=== PATIENT | female | born 1940 | race Caucasian/White ===

== ENCOUNTER 2021-01-05 21:03 | Observation (INO) ==
[2021-01-05] MEDS ORDERED: ASPIRIN CHEW 81 MG TABLET PO STA (21:28)
[2021-01-05 21:45] LABS: Basophils # 0.1 10*3/uL (0.0-0.2); Basophils % 0.7 % (0.0-0.8); Eosinophils # 0.2 10*3/uL (0.0-0.87); Eosinophils % 1.4 % (0.00-10.9); Hematocrit 46.7 VOL% (35.7-47.0); Hemoglobin 15.7 GM/DL (12.0-16.0); Immature Granulocytes % 0.4 %; Immature Granulocytes Absolute 0.05 #; Lymphocytes # 3.1 10*3/uL (1.4-4.0); Lymphocytes % 26.8 % (21.3-54.2); Mean Corpuscular HGB Conc 33.6 GM/DL (32-36); Mean Corpuscular Volume 94.5 FL (87-102); Mean Platelet Volume 10.3 FL (9.6-12.0); Monocytes % 7.9 % (1.7-12.7); Neutrophils % 62.8 % (38.7-73.9); Platelet Count 174 T/CUMM (130-400); Red Blood Count 4.94 MC/CUMM (3.8-5.5); Red Cell Distribution Width 13.6 % (9.3-17.3); White Blood Count 11.6 T/CUMM (4-12)
[2021-01-05 22:12] LABS: Albumin 3.9 G/DL (3.4-5.0); Bilirubin,Total 0.5 MG/DL (0.2-1.0); Osmolality,Calculated 274.7 MOS/KG (273-304); Potassium 4.4 MMOL/L (3.5-5.1); Thyroid Stimulating Hormone 0.14 uIU/ml (0.358-3.74); Total Protein 7.6 G/DL (6.4-8.2)
[2021-01-05] MEDS ORDERED: NITROGLYCERIN SL 0.4 MG TABLET SL PRN (23:00)
[2021-01-05] MEDS ORDERED: ONDANSETRON 4 MG/2 ML VIAL IV PRN (23:32)
[2021-01-05] MEDS ORDERED: ACETAMINOPHEN 325 MG TABLET PO PRN (23:32)
[2021-01-05] MEDS ORDERED: SODIUM CHLORIDE 0.9% 1,000 ML IV SCH (23:45)
[2021-01-06 06:09] LABS: Albumin 3.2 G/DL (3.4-5.0); Bilirubin,Total 0.8 MG/DL (0.2-1.0); Calcium 8.3 MG/DL (8.5-10.1); Osmolality,Calculated 274.7 MOS/KG (273-304); Potassium 4.1 MMOL/L (3.5-5.1)
[2021-01-06] MEDS ORDERED: LEVOTHYROXINE 100 MCG TABLET PO SCH (06:30)
[2021-01-06 08:23] VITALS: BP 116/56
[2021-01-06] MEDS ORDERED: PANTOPRAZOLE 40 MG TABLET PO SCH (09:00)
[2021-01-06] MEDS ORDERED: ASPIRIN 325 MG TABLET PO SCH (09:00)
[2021-01-06] MEDS ORDERED: ASPIRIN EC 81 MG TABLET PO SCH (09:00)
[2021-01-06] MEDS ORDERED: DOCUSATE SODIUM 100 MG CAPSULE PO SCH (09:00)
== END 2021-01-06 14:45 | disposition home or self-care (01) ==
LOC: N.EDINP 21:03 → N.ED 21:03 → N.TELES 01-06 00:56
PROVIDERS: ADMIT Family Medicine; ATTEND Family Medicine

== ENCOUNTER 2022-05-15 21:18 | Observation (INO) ==
[2022-05-15] MEDS ORDERED: ALBUTEROL NEB SOLN 5 MG/ML 20 ML/BOTTLE CONT NEB SCH (22:00)
[2022-05-15] MEDS ORDERED: NITROGLYCERIN 2% OINT 1 INCH/GM PACK TOP STA (22:00)
[2022-05-15] MEDS ORDERED: methylPREDNISolone SOD SUC 125 MG/2 ML VIAL IV STA (22:00)
[2022-05-15] MEDS ORDERED: FUROSEMIDE 40 MG/4 ML VIAL IV STA (22:00)
[2022-05-15] MEDS ORDERED: ONDANSETRON 4 MG/2 ML VIAL IV STA (22:00)
[2022-05-15 22:22] LABS: Basophils # 0.1 10*3/uL (0.0-0.2); Basophils % 0.6 % (0.0-0.8); Eosinophils # 0.2 10*3/uL (0.0-0.87); Eosinophils % 1.3 % (0.00-10.9); Hematocrit 41.3 VOL% (35.7-47.0); Hemoglobin 13.5 GM/DL (12.0-16.0); Immature Granulocytes % 0.7 %; Immature Granulocytes Absolute 0.09 #; Lymphocytes % 16.8 % (21.3-54.2); Mean Corpuscular HGB Conc 32.7 GM/DL (32-36); Mean Corpuscular Volume 94.7 FL (87-102); Mean Platelet Volume 11.1 FL (9.6-12.0); Monocytes # 1.1 10*3/uL (0.11-0.8); Monocytes % 8.7 % (1.7-12.7); Neutrophils % 71.9 % (38.7-73.9); Platelet Count 111 T/CUMM (130-400); Red Blood Count 4.36 MC/CUMM (3.8-5.5); Red Cell Distribution Width 14.3 % (9.3-17.3)
[2022-05-15 22:28] LABS: Arterial Base Excess iSTAT 0 MMOL/L (-2.5-2.5); Arterial Bicarbonate iSTAT 22.8 MMOL/L (20-26); Arterial O2 Saturation iSTAT 97 % (95-100); Arterial PCO2 iSTAT 31 MM HG (35-48); Arterial PO2 iSTAT 81 MM HG (80-95); Arterial Total CO2 iSTAT 24 MMO/L (23-27); Arterial pH iSTAT 7.474 (7.35-7.45)
[2022-05-15 22:39] LABS: INR 1.1; PT Patient Result 11.9 SECS (10.1-12.1)
[2022-05-15 22:45] LABS: Albumin 3.1 G/DL (3.4-5.0); Bilirubin,Total 0.7 MG/DL (0.20-1.00); Calcium 8.8 MG/DL (8.5-10.1); Osmolality,Calculated 284.1 MOS/KG (273-304)
[2022-05-15 22:52] LABS: Free T4 (Free Thyroxine) 1.09 NG/DL (0.76-1.46); Thyroid Stimulating Hormone 0.229 uIU/ml (0.358-3.74)
[2022-05-16] MEDS ORDERED: MORPHINE 2 MG/1 ML SYRINGE IV PRN (00:53)
[2022-05-16] MEDS ORDERED: ONDANSETRON 4 MG/2 ML VIAL IV PRN (00:53)
[2022-05-16] MEDS ORDERED: SODIUM CHLORIDE 0.9% 1,000 ML IV SCH (00:53)
[2022-05-16] MEDS ORDERED: GLUCAGON 1 MG VIAL IM PRN (00:53)
[2022-05-16] MEDS ORDERED: ACETAMINOPHEN 325 MG TABLET PO PRN (00:53)
[2022-05-16] MEDS ORDERED: DEXTROSE 10% 250 ML BAG IV PRN (00:58)
[2022-05-16] MEDS: INSULIN REGULAR 100 UNIT/ML SUBCUT SCH ×4 (01:30→18:43)
[2022-05-16] MEDS: ALBUTEROL/IPRATROPIUM 3 ML NEB RESP TX SCH ×5 (03:00→19:31)
[2022-05-16] MEDS ORDERED: methylPREDNISolone SOD SUC 40 MG/1 ML VIAL IV SCH (06:00)
[2022-05-16] MEDS ORDERED: NITROGLYCERIN SL 0.4 MG TABLET SL PRN (06:56)
[2022-05-16 07:16] LABS: Basophils % 0.2 % (0.0-0.8); Eosinophils % 0.1 % (0.00-10.9); Hematocrit 39.5 VOL% (35.7-47.0); Hemoglobin 12.8 GM/DL (12.0-16.0); Immature Granulocytes % 0.9 %; Lymphocytes # 0.8 10*3/uL (1.4-4.0); Lymphocytes % 7.4 % (21.3-54.2); Mean Corpuscular HGB Conc 32.4 GM/DL (32-36); Mean Corpuscular Volume 96.8 FL (87-102); Mean Platelet Volume 12.4 FL (9.6-12.0); Monocytes # 0.2 10*3/uL (0.11-0.8); Monocytes % 1.9 % (1.7-12.7); Neutrophils % 89.5 % (38.7-73.9); Platelet Count 98 T/CUMM (130-400); Red Blood Count 4.08 MC/CUMM (3.8-5.5); Red Cell Distribution Width 14.6 % (9.3-17.3); White Blood Count 11.2 T/CUMM (4-12)
[2022-05-16 07:22] LABS: Albumin 3.1 G/DL (3.4-5.0); Bilirubin,Total 0.7 MG/DL (0.20-1.00); Calcium 8.4 MG/DL (8.5-10.1); Osmolality,Calculated 286.5 MOS/KG (273-304); Potassium 3.4 MMOL/L (3.5-5.1); Risk Ratio 1.96; Total Protein 6.9 G/DL (6.4-8.2); VLDL Cholesterol 15.8 MG/DL
[2022-05-16 07:26] LABS: Platelet Estimate Decreased
[2022-05-16] MEDS ORDERED: POTASSIUM CHLORIDE 20 MEQ TABLET PO ONE (07:42)
[2022-05-16] MEDS ORDERED: MAGNESIUM SULF RIDER 2 GM/50 ML PREMIX IV ONE (07:43)
[2022-05-16] MEDS: ENOXAPARIN 40 MG/0.4 ML SYRINGE SUBCUT SCH (08:36)
[2022-05-16] MEDS: FUROSEMIDE 20 MG/2 ML VIAL IV SCH ×2 (08:38→15:24)
[2022-05-16] MEDS: COLESEVELAM 625 MG TABLET PO SCH ×2 (08:41→21:45)
[2022-05-16] MEDS: DOCUSATE SODIUM 100 MG CAPSULE PO SCH ×2 (08:41→21:45)
[2022-05-16] MEDS: LEVOTHYROXINE 100 MCG TABLET PO SCH (08:41)
[2022-05-16] MEDS: ASPIRIN EC 81 MG TABLET PO SCH (08:42)
[2022-05-16] MEDS: PANTOPRAZOLE 40 MG TABLET PO SCH (08:42)
[2022-05-16] MEDS: GLIMEPIRIDE 2 MG TABLET PO SCH (08:42)
[2022-05-16] MEDS: SERTRALINE 50 MG TABLET PO SCH (08:42)
[2022-05-16] MEDS ORDERED: HYDROCORTISONE 10 MG TABLET PO SCH (09:00)
[2022-05-16] MEDS ORDERED: DESMOPRESSIN 0.1 MG PO SCH (15:00)
[2022-05-16] MEDS: HYDROCORTISONE 10 MG TABLET PO SCH (15:32)
[2022-05-16] MEDS ORDERED: ZALEPLON 5 MG CAPSULE PO SCH (21:00)
[2022-05-17] MEDS: INSULIN REGULAR 100 UNIT/ML SUBCUT SCH ×3 (00:21→12:42)
[2022-05-17] MEDS: ALBUTEROL/IPRATROPIUM 3 ML NEB RESP TX SCH ×4 (00:25→10:49)
[2022-05-17 03:48] LABS: Basophils % 0.1 % (0.0-0.8); Hematocrit 35.1 VOL% (35.7-47.0); Hemoglobin 11.5 GM/DL (12.0-16.0); Immature Granulocytes % 1.2 %; Immature Granulocytes Absolute 0.23 #; Lymphocytes # 1.5 10*3/uL (1.4-4.0); Lymphocytes % 7.7 % (21.3-54.2); Mean Corpuscular HGB Conc 32.8 GM/DL (32-36); Mean Corpuscular Volume 95.9 FL (87-102); Mean Platelet Volume 11.9 FL (9.6-12.0); Monocytes # 1.3 10*3/uL (0.11-0.8); Monocytes % 6.9 % (1.7-12.7); Neutrophils % 84.1 % (38.7-73.9); Platelet Count 112 T/CUMM (130-400); Red Blood Count 3.66 MC/CUMM (3.8-5.5); White Blood Count 19.2 T/CUMM (4-12)
[2022-05-17 04:02] LABS: Calcium 8.5 MG/DL (8.5-10.1); Osmolality,Calculated 290.1 MOS/KG (273-304); Potassium 4.2 MMOL/L (3.5-5.1)
[2022-05-17] MEDS: LEVOTHYROXINE 100 MCG TABLET PO SCH (06:15)
[2022-05-17] MEDS: COLESEVELAM 625 MG TABLET PO SCH (08:56)
[2022-05-17] MEDS: ASPIRIN EC 81 MG TABLET PO SCH (08:57)
[2022-05-17] MEDS: PANTOPRAZOLE 40 MG TABLET PO SCH (08:57)
[2022-05-17] MEDS: HYDROCORTISONE 10 MG TABLET PO SCH (08:57)
[2022-05-17] MEDS: GLIMEPIRIDE 2 MG TABLET PO SCH (08:57)
[2022-05-17] MEDS: SERTRALINE 50 MG TABLET PO SCH (08:57)
[2022-05-17] MEDS: DOCUSATE SODIUM 100 MG CAPSULE PO SCH (08:57)
[2022-05-17] MEDS: ENOXAPARIN 40 MG/0.4 ML SYRINGE SUBCUT SCH (08:58)
[2022-05-17 12:20] VITALS: BP 119/75
[2022-05-18] MEDS ORDERED: FUROSEMIDE 20 MG TABLET PO SCH (09:00)
== END 2022-05-17 13:24 | disposition home or self-care (01) ==
LOC: N.EDINP 21:18 → N.ED 21:18 → N.TELES 23:46
PROVIDERS: ADMIT Family Medicine; ATTEND Family Medicine